=== PATIENT | female | born 1980 | race Caucasian/White ===

== ENCOUNTER 2016-12-05 22:14 | Emergency (ER) | payer OTHER ==
[2016-12-05 22:21] VITALS: BP 138/85; PULSE 77; TEMP 98.1; BMI 29.6
[2016-12-05] MEDS ORDERED: LIDOCAINE HCL 1%, 10 MG/ML (20ML VIAL) ONE (23:26)
--- NOTE | 2016-12-05 23:46 | PDOC ---
*Physical Exam - Vital Signs Last Vital Signs Temp Pulse Resp BP Pulse Ox 98.1 F 77 17 138/85 100 12/05/16 22:17 12/05/16 22:17 12/05/16 22:17 12/05/16 22:17 12/05/16 22:17 - Physical Exam General Appearance: Yes: Nourished Progress Note - Progress Note Progress Note: 2.5cm horiz lac to top of scal[p Betadine prep 1% lidocaine=4cc NS irrigation/copious (6) 4.0 nylon running lock Bacitracin *DC/Admit/Observation/Transfer Diagnosis at time of Disposition: Laceration - Discharge Dispostion Disposition: HOME Condition at time of disposition: Stable - Referrals Referrals: Shelton Garcia MD [Primary Care Provider] - - Patient Instructions Printed Discharge Instructions: DI for Laceration Repair, DI for Suture Removal Additional Instructions: please have your sutures removed in 7 days
[2016-12-05] MEDS ORDERED: ACETAMINOPHEN 325 MG TABLET (FP) PO ONE (23:48)
--- NOTE | 2016-12-05 23:50 | PDOC ---
History of Present Illness - History of Present Illness Initial Comments: 12/05/16 23:53 The patient is a 36 year old female, with a significant past medical history of mitral valve prolapse, who presents to the emergency department with forehead laceration s/p head trauma. Patient says she was trying to put something on top of a cabinet and hit her head on the corner of the cabinet and became a little dizzy. She sustained a 2.5 cm laceration on the top of her scalp behind the hairline. She denies loss of consciousness. She denies recent fevers, chills. She denies recent nausea, vomit, diarrhea or constipation. She denies recent dysuria, frequency, urgency or hematuria. She denies recent chest pain or shortness of breath. Allergies: NKA Past surgical history: None reported. Social history: Nonsmoker. Denies EtOH use and recreational drug use. Primary Care Physician: Shelton Garcia MD <Nicole Bryson - Last Filed: 12/05/16 23:52> <June Degroot - Last Filed: 12/06/16 00:10> - General Chief Complaint: Laceration Stated Complaint: FALL/INJURY Time Seen by Provider: 12/05/16 23:01 Past History <Nicole Bryson - Last Filed: 12/05/16 23:52> - Past Medical History Cardiac Disorders: Yes (MVP) - Immunization History Td Vaccination: Yes TDAP Vaccination: Yes Immunization Up to Date: Yes - Suicide/Smoking/Psychosocial Hx Smoking Status: No Smoking History: Never smoked Have you smoked in the past 12 months: No Number of Cigarettes Smoked Daily: 0 Information on smoking cessation initiated: No Hx Alcohol Use: No Drug/Substance Use Hx: No Substance Use Type: None <June Degroot - Last Filed: 12/06/16 00:10> - Past Medical History Allergies/Adverse Reactions: Allergies Allergy/AdvReac Type Severity Reaction Status Date / Time No Known Allergies Allergy Verified 03/21/11 13:10 Home Medications: Ambulatory Orders Cyclobenzaprine HCl [Flexeril] 10 mg PO TID PRN #20 tablet NS 03/21/11 Review of Systems - Review of Systems Comments:: 12/05/16 23:53 CONSTITUTIONAL: Absent: fever, no chills, no fatigue EYES: Absent: visual changes ENT: Absent: ear pain, no sore throat CARDIOVASCULAR: Absent: chest pain, no palpitations RESPIRATORY: Absent: cough, no SOB GI: Absent: abdominal pain, no nausea, no vomiting, no constipation, no diarrhea GENITOURINARY: Absent: dysuria, no frequency, no hematuria MUSCULOSKELETAL: Absent: back pain, no arthralgia, no myalgia SKIN: Present: laceration Absent: rash <Nicole Bryson - Last Filed: 12/05/16 23:52> *Physical Exam - Vital Signs Last Vital Signs Temp Pulse Resp BP Pulse Ox 98.1 F 77 17 138/85 100 12/05/16 22:17 12/05/16 22:17 12/05/16 22:17 12/05/16 22:17 12/05/16 22:17 - Physical Exam Comments: 12/05/16 23:54 GENERAL: Alert, oriented x3. Well-appearing, well-nourished. No apparent distress. HEENT: Normocephalic, atraumatic. PERRL, EOM intact. CARDIOVASCULAR: Normal S1, S2. Regular rate and rhythm. PULMONARY: Clear to auscultation bilaterally. ABDOMEN: Soft, non-distended, non-tender. EXTREMITIES: Normal ROM in all four extremities. No gross deformities. SKIN: + 2.5 cm linear laceration to forehead behind frontal hairline. Warm, dry. No rash NEUROLOGICAL: No focal neurological deficits. <Nicole Bryson - Last Filed: 12/05/16 23:52> - Vital Signs Last Vital Signs Temp Pulse Resp BP Pulse Ox 98.1 F 77 17 138/85 100 12/05/16 22:17 12/05/16 22:17 12/05/16 22:17 12/05/16 22:17 12/05/16 22:17 <June Degroot - Last Filed: 12/06/16 00:10> *DC/Admit/Observation/Transfer - Attestations Scribe Attestion: 12/05/16 23:55 Documentation prepared by Nicole Bryson, acting as medical associate for June Degroot MD. <Nicole Bryson - Last Filed: 12/05/16 23:52> <June Degroot - Last Filed: 12/06/16 00:10> Diagnosis at time of Disposition: Laceration - Discharge Dispostion Disposition: HOME Condition at time of disposition: Stable - Referrals Referrals: Shelton Garcia MD [Primary Care Provider] - - Patient Instructions Printed Discharge Instructions: DI for Laceration Repair, DI for Suture Removal Additional Instructions: please have your sutures removed in 7 days
[2016-12-06] MEDS ORDERED: ACETAMINOPHEN 325 MG TABLET (FP) ONE (00:11)
== END 2016-12-06 00:20 | disposition home or self-care (01) ==
LOC: SUPCPDRO 22:14 → JER 22:14
PROC: 0HQ0XZZ Repair Scalp Skin, External Approach (ICD-10-PCS; principal; 2016-12-05)
DX: S01.01XA Laceration without foreign body of scalp, initial encounter (principal); W22.8XXA Striking against or struck by other objects, initial encounter; Y93.89 Activity, other specified; Y92.89 Other specified places as the place of occurrence of the external cause
CPT/HCPCS: 99281-25